=== PATIENT | female | born 1955 | race Caucasian/White ===

== ENCOUNTER → 2016-12-23 | Outpatient (CLI) | payer BC ==
--- NOTE | 2016-12-23 14:16 | CARD ---
APPROVED REPORT INDICATION Cardiac Disease: CAD PROCEDURE The patient underwent an Exercise Stress Test using the Miguel Protocol. Blood pressure, heart rate, a nd EKG were monitored. An Echocardiogram was performed by test and turn up technician in four stages in quad fashion. At peak stress four se lected images were obtained and placed side by side with resting images for comparison. STRESS ECHO FINDINGS The resting Echocardiogram showed normal left ventricular contractility with an estimated Ejection Fr action of about 60 %. Normal augmentation of myocardial wall segments using a 16 segment model. Test Type: Exercise Stress Nurse/Tech: Vasile Cobb RN Test Indications: chest pain Cardiac History and Allergies: see ehr Medications: see ehr Medical History: see ehr Resting ECG: SR Resting Heart Rate: 89 bpm Resting Blood Pressure: 132/74mmHg Pretest Chest Pain: None Nurse/Tech Notes Lungs CTA, S1, S2 Consent: The procedure was explained to the patient in lay terms. Informed consent was witnessed. Oren eout was entered into [facility]. History and Stress Test performed by Vasile Cobb R.N. Stress Symptoms No chest pain or symptoms. POST EXERCISE Reason for Termination: Reached target heart rate, Fatigue Target HR: Yes Max HR: 150 bpm 96% of Maximum Predicted HR: 157 bpm Exercise duration: 3:49 min:sec, 2 Stage Exercise capacity: 4.6METs Max Blood Pressure: 200/61mmHg Blood Pressure response to exercise: Normal blood pressure response during stress. Chest Pain: No. Arrhythmia: No. ST Change: No. INTERPRETATION Stress EKG Conclusion: The resting EKG showed a sinus rhythm and mild nonspecific ST segment changes. The stress EKG showed no significant changes from baseline. No EKG evidence of stress-induced ischemia. Preliminary Notification Critical Value: No <Conclusion> Fair exercise tolerance. No chest pain with exertion. No EKG evidence of stress-induced ischemia. Normal LV systolic function at rest. Normal LV function with exertion with no regional wall motion abnormalities or evidence of stress-ind uced ischemia. Low risk treadmill echo stress test.
== END | disposition home or self-care (01) ==
LOC: ECHO 12:39
PROVIDERS: ATTEND Internal Medicine Cardiovascular Disease
DX: I25.10 Atherosclerotic heart disease of native coronary artery without angina pectoris (principal); R07.9 Chest pain, unspecified
CPT/HCPCS: 93017; 93350